=== PATIENT | female | born 1995 | race Caucasian/White ===

== ENCOUNTER 2018-03-07 10:26 | Emergency (ER) | payer MEDICAID ==
[~2018-03-07] VITALS: Ht 157.5 cm; Wt 54.9 kg
[2018-03-07 10:30] VITALS: BP 132/71; Ht 157.5 cm; Wt 54.9 kg
== END 2018-03-07 11:11 | disposition home or self-care (01) ==
LOC: ED 10:26
DX: S13.4XXA Sprain of ligaments of cervical spine, initial encounter (principal); M54.6 Pain in thoracic spine; V43.52XA Car driver injured in collision with other type car in traffic accident, initial encounter; Y93.I9 Activity, other involving external motion; Y92.488 Other paved roadways as the place of occurrence of the external cause; Y99.8 Other external cause status
CPT/HCPCS: J1885

== ENCOUNTER 2018-07-23 17:43 | Emergency (ER) | payer MEDICAID ==
[~2018-07-23] VITALS: Ht 160 cm; Wt 54.9 kg
[2018-07-23 18:35] VITALS: Ht 160 cm; Wt 54.9 kg
[2018-07-23 20:10] VITALS: BP 126/98
== END 2018-07-23 20:10 | disposition home or self-care (01) ==
LOC: ED 17:43
DX: N64.59 Other signs and symptoms in breast (principal); R20.0 Anesthesia of skin

== ENCOUNTER 2018-10-17 12:13 | Emergency (ER) | payer MEDICAID ==
[~2018-10-17] VITALS: Ht 160 cm; Wt 59.9 kg
[2018-10-17 12:19] VITALS: Ht 160 cm; Wt 59.9 kg
[2018-10-17 14:43] VITALS: BP 133/89
== END 2018-10-17 14:43 | disposition home or self-care (01) ==
LOC: ED 12:13
DX: R51 Headache (principal)
CPT/HCPCS: Q9967

== ENCOUNTER 2019-02-28 21:04 | Emergency (ER) | payer MEDICAID ==
[~2019-02-28] VITALS: Ht 160 cm; Wt 57.6 kg
[2019-02-28 21:10] VITALS: Ht 160 cm; Wt 57.6 kg
[2019-03-01 00:06] VITALS: BP 123/78
[2019-03-02 05:07] LABS: RAPID PLASMA REAGIN Non Reactive (Non Reactive)
== END 2019-03-01 00:06 | disposition home or self-care (01) ==
LOC: ED 21:04
PROVIDERS: Emergency Medicine
DX: N89.8 Other specified noninflammatory disorders of vagina (principal); Z11.3 Encounter for screening for infections with a predominantly sexual mode of transmission
CPT/HCPCS: 87491; 87591; J0696

== ENCOUNTER 2020-03-12 20:46 | Emergency (ER) | payer MEDICAID ==
[~2020-03-12] VITALS: Ht 160 cm; Wt 59.5 kg
[2020-03-12 21:00] VITALS: Ht 160 cm; Wt 59.5 kg
[2020-03-12 22:27] VITALS: BP 115/71
== END 2020-03-12 22:27 | disposition home or self-care (01) ==
LOC: ED 20:46
DX: O26.891 Other specified pregnancy related conditions, first trimester (principal); R20.2 Paresthesia of skin; R20.0 Anesthesia of skin; M25.511 Pain in right shoulder; Z3A.00 Weeks of gestation of pregnancy not specified
CPT/HCPCS: J1885